=== PATIENT | male | born 1960 | race Caucasian/White ===

== ENCOUNTER 2019-03-05 08:23 | Day surgery (SDC) | payer BC ==
[~2019-03-05] VITALS: Ht 177.8 cm; Wt 110.3 kg
[~2019-03-05 08:23] MED LIST: ASPI81CH PO; CHOL10002 PO; ERGO400 PO; FERROUS SULFATE PO; HYDCHL12.5 PO; HYDR1TAB94 PO; Keflex500 MG PO; LORATADINE-D 11 EACH PO; LORPSEER12 PO; LOSA50 PO; MAGNESIUM250 MG PO; METO25ER PO; NEBI10 PO; OMEP20ER PO; VALA500 PO; ZOLP10 PO
--- NOTE | 2019-03-05 10:40 | NUR ---
03/05/19 1040 Lorrie Cabral SIMETHICONE USED DURING PROCEDURE.
== END 2019-03-05 11:47 | disposition home or self-care (01) ==
LOC: ORSCSDS 08:23
PROVIDERS: Internal Medicine Gastroenterology
PROC: 3E0H8GC Introduction of Other Therapeutic Substance into Lower GI, Via Natural or Artificial Opening Endoscopic (ICD-10-PCS; principal; 2019-03-05 09:45)
PROC: 0DB68ZX Excision of Stomach, Via Natural or Artificial Opening Endoscopic, Diagnostic (ICD-10-PCS; principal; 2019-03-05 09:45)
PROC: 0DBL8ZX Excision of Transverse Colon, Via Natural or Artificial Opening Endoscopic, Diagnostic (ICD-10-PCS; principal; 2019-03-05 09:45)
PROC: 0DB98ZX Excision of Duodenum, Via Natural or Artificial Opening Endoscopic, Diagnostic (ICD-10-PCS; principal; 2019-03-05 09:45)
DX: D50.9 Iron deficiency anemia, unspecified (principal); Z86.010 Personal history of colon polyps; C18.4 Malignant neoplasm of transverse colon; K31.7 Polyp of stomach and duodenum; D12.3 Benign neoplasm of transverse colon; K57.30 Diverticulosis of large intestine without perforation or abscess without bleeding; K64.8 Other hemorrhoids; I10 Essential (primary) hypertension; Z79.899 Other long term (current) drug therapy
CPT/HCPCS: 88305; 88342; J2704; J7120

== ENCOUNTER 2019-03-24 06:01 | Inpatient (IN) | payer BC ==
[~2019-03-24 06:01] MED LIST changes: +IRON PO; +METR500 PO; +NEOM500 PO
--- NOTE | 2019-03-24 06:51 | NUR ---
History, Chart, Medications and Allergies reviewed before start of procedure. Lungs clear T/O to Auscultation.
--- NOTE | 2019-03-24 08:14 | NUR ---
03/24/19 0814 Arlin Rush CATH PLACED BY MCKENNA BOO.
--- NOTE | 2019-03-24 11:04 | NUR ---
ARRIVED FROM OR WAKING UP MOVING LOTS REDIREDTED SEVERAL TIMES TO LIE STILL AND NOT PULL AT THINGS NEEDING SEVERAL REMINDERS TO NOT PULL
--- NOTE | 2019-03-24 11:28 | NUR ---
REPORT GIVEN PATIHOMA TRANSFERRED WITH RN
--- NOTE | 2019-03-24 18:30 | NUR ---
SHIFT SUMMARY PT HAS DONE WELL TODAY SINCE ARRIVING TO UNIT FROM SURGERY. HAS HAD MINIMAL PAIN POST OP. WAS ENCOURAGED TO TAKE TYLENOL AND GABAPENTIN. ABLE TO GET UP TO CHAIR AND AMBULATE IN ROOM EASILY.
--- NOTE | 2019-03-25 04:39 | NUR ---
SHIFT SUMMARY PT IS POD#1 LAP COLECTOMY R/T ADENOCARCINOMA OF THE COLON. SURGICAL SITES ARE WNL, DRESSINGS AND PRAVENA WOUND VAC ARE DRY AND INTACT. PT DENIES PAIN OR NAUSEA THIS SHIFT, VSS WITH O2 SATS >90% ON RA. PT REQUIRES SBA WHEN UP IN ROOM, INDEPENDENT WITH ADLS AT BASELINE. SIMMONS D/C AT 0500 ON 03/25/19 PER PROVIDER ORDER, PT TOLERATED WELL.
[2019-03-25 05:00] LABS: BASOPHILS ABSOLUTE AUTO 0.03 K/mm3 (0.00-0.23); BASOPHILS PERCENT AUTO 0 % (0-2); EOSINOPHILS ABSOLUTE AUTO 0.03 K/mm3 (0.00-0.68); EOSINOPHILS PERCENT AUTO 0 % (0-6); Hemoglobin 10.8 g/dL (13.5-17.5); IMMATURE GRAN ABSOLUTE AUTO 0.02 K/mm3 (0.00-0.10); IMMATURE GRAN PERCENT AUTO 0 % (0-1); LYMPHOCYTES ABSOLUTE AUTO 1.77 K/mm3 (0.84-5.20); LYMPHOCYTES PERCENT AUTO 23 % (21-46); MONOCYTES ABSOLUTE AUTO 0.75 K/mm3 (0.16-1.47); MONOCYTES PERCENT AUTO 10 % (4-13); Mean Corpuscular HGB 25.8 pg (26.0-34.0); Mean Corpuscular HGB Conc 31.8 g/dL (31.5-36.5); Mean Corpuscular Volume 81 fL (80-100); Mean Platelet Volume 9.4 fL (9.1-12.4); NEUTROPHILS ABSOLUTE AUTO 5.16 K/mm3 (1.96-9.15); NEUTROPHILS PERCENT AUTO 66 % (41-73); Platelet Count 206 K/mm3 (150-400); RDW Coefficient Variation 15.5 % (11.7-14.2); RDW Standard Deviation 45.9 fL (35.1-46.3); Red Blood Cell Count 4.18 M/mm3 (4.30-5.90); White Blood Cell Count 7.76 K/mm3 (4.00-11.30)
[2019-03-25 05:27] LABS: Anion Gap 3 mmol/L (6-16); Blood Urea Nitrogen 13 mg/dL (8-24); CO2, Blood 29 mmol/L (21-32); Calcium, Blood 7.7 mg/dL (8.5-10.1); Chloride, Blood 107 mmol/L (98-108); Glomerular Filtration Rate >60 (60-); Glucose, Blood 104 mg/dL (70-99); Potassium, Blood 3.3 mmol/L (3.5-5.5); Sodium, Blood 139 mmol/L (136-145)
--- NOTE | 2019-03-25 19:19 | NUR ---
SHIFT SUMMARY PT HAS DONE VERY WELL. AMBULATING FREQUENTLY, VOIDING, PAIN WELL MANAGED, NOT PASSING GAS YET BUT TOLERATED REG DINNER TRAY, APROX 30%.
--- NOTE | 2019-03-26 06:12 | NUR ---
POD 2 S/P COLECTOMY. PT VSS T/O NIGHT, PAIN MGD W/SCHEDULED TYLENOL W/REP RELIEF. DRESSINGS CDI. PT HAD NO C/O N/V, REP NO FLATUS YET. PT DRINKING PO FLUIDS, IS VOIDING URINE W/O DIFFICULTY. PT AMB INDEP, JERRY WELL, IS USING CALL LIGHT FOR ASSISTANCE, WILL CONT TO MONITOR UNTIL REP GIVEN TO ONCOMING RN.
--- NOTE | 2019-03-26 13:42 | NUR ---
PT REPORTS PASSING FLATUS AND SMALL BM
[2019-03-26] MEDS ORDERED: Norco 5-325 Ta1 EACH PO (16:26)
[2019-03-26] MEDS ORDERED: ACET325 PO (16:33)
--- NOTE | 2019-03-26 17:22 | NUR ---
DISCHARGE PT DISCHARGED HOME FROM UNIT AT APROX 1715. PT GIVEN WRITTEN AND VERBAL DISCHARGE INSTRUCTIONS AND VERBALIZED UNDERSTANDING OF THESE INSTRUCTIONS. IV REMOVED. PT DECLINED WHEELCHAIR OR ASSISTANCE TO VEHICLE.
== END 2019-03-26 17:15 | disposition home or self-care (01) | DRG 331 ==
LOC: SURS 06:01 → PRE IP 07:30 → SURS 11:32
PROVIDERS: ADMIT Surgery
PROC: 0DTF4ZZ Resection of Right Large Intestine, Percutaneous Endoscopic Approach (ICD-10-PCS; principal; 2019-03-24 07:30)
DX: C18.3 Malignant neoplasm of hepatic flexure (principal); I10 Essential (primary) hypertension; Z88.5 Allergy status to narcotic agent
CPT/HCPCS: 36415; 80048; 85025; 86850; 86900; 86901; 88309; A9270; J0690; J1100; J1650; J1885; J2250; J2370; J2405; J2704; J2710; J3010; J7030; J7120

== ENCOUNTER → 2019-04-09 | Outpatient (CLI) | payer BC ==
[~2019-04-09] MED LIST changes: +ACET325 PO; +Norco 5-325 Ta1 EACH PO
[2019-04-09 15:21] LABS: Performing Lab SYMBIODX; Test Name TISSUE BLOCK
== END | disposition home or self-care (01) ==
LOC: LAB 15:14 → LAB SHORT 15:14
PROVIDERS: Internal Medicine Hematology & Oncology
DX: C18.3 Malignant neoplasm of hepatic flexure (principal)
CPT/HCPCS: 88341; 88342

== ENCOUNTER 2019-09-15 06:44 | Day surgery (SDC) | payer BC ==
[~2019-09-15] VITALS: Ht 180.3 cm; Wt 113.7 kg
[2019-09-15] MEDS ORDERED: KAPSPARGO SPRIN50 MG (07:15)
--- NOTE | 2019-09-15 09:11 | NUR ---
09/15/19910 Kelsey Turner PT. WAS ASKED IF HE WANTED ANYTHING TO DRINK. PT. STATED "I'M FINE." PT. DIDN'T WANT ANYTHING TO DRINK.
== END 2019-09-15 08:53 | disposition home or self-care (01) ==
LOC: ORSCSDS 06:44
PROVIDERS: Internal Medicine Gastroenterology
PROC: 0DBN8ZX Excision of Sigmoid Colon, Via Natural or Artificial Opening Endoscopic, Diagnostic (ICD-10-PCS; principal; 2019-09-15 08:00)
PROC: 0DBM8ZX Excision of Descending Colon, Via Natural or Artificial Opening Endoscopic, Diagnostic (ICD-10-PCS; principal; 2019-09-15 08:00)
DX: Z85.038 Personal history of other malignant neoplasm of large intestine (principal); Z86.010 Personal history of colon polyps; D12.4 Benign neoplasm of descending colon; K63.5 Polyp of colon; K57.30 Diverticulosis of large intestine without perforation or abscess without bleeding; K64.8 Other hemorrhoids; I10 Essential (primary) hypertension; K21.9 Gastro-esophageal reflux disease without esophagitis; E78.5 Hyperlipidemia, unspecified; Z79.899 Other long term (current) drug therapy
CPT/HCPCS: 88305; J2405; J2704; J7120

== ENCOUNTER 2020-08-25 22:59 | Emergency (ER) | payer BC ==
[~2020-08-25] VITALS: Ht 165.1 cm; Wt 79.4 kg
[~2020-08-25 22:59] MED LIST changes: +KAPSPARGO SPRIN50 MG
[2020-08-26 00:44] LABS: BASOPHILS ABSOLUTE AUTO 0.06 K/mm3 (0.00-0.23); BASOPHILS PERCENT AUTO 1 % (0-2); EOSINOPHILS ABSOLUTE AUTO 0.32 K/mm3 (0.00-0.68); EOSINOPHILS PERCENT AUTO 4 % (0-6); Hemoglobin 14.8 g/dL (13.5-17.5); IMMATURE GRAN ABSOLUTE AUTO 0.02 K/mm3 (0.00-0.10); IMMATURE GRAN PERCENT AUTO 0 % (0-1); LYMPHOCYTES ABSOLUTE AUTO 2.83 K/mm3 (0.84-5.20); LYMPHOCYTES PERCENT AUTO 39 % (21-46); MONOCYTES ABSOLUTE AUTO 0.78 K/mm3 (0.16-1.47); MONOCYTES PERCENT AUTO 11 % (4-13); Mean Corpuscular HGB 29.7 pg (26.0-34.0); Mean Corpuscular HGB Conc 33.6 g/dL (31.5-36.5); Mean Corpuscular Volume 88 fL (80-100); Mean Platelet Volume 9.6 fL (9.1-12.4); NEUTROPHILS ABSOLUTE AUTO 3.25 K/mm3 (1.96-9.15); NEUTROPHILS PERCENT AUTO 45 % (41-73); Platelet Count 189 K/mm3 (150-400); RDW Coefficient Variation 12.7 % (11.7-14.2); RDW Standard Deviation 40.8 fL (35.1-46.3); Red Blood Cell Count 4.98 M/mm3 (4.30-5.90); White Blood Cell Count 7.26 K/mm3 (4.00-11.30)
[2020-08-26 01:04] LABS: Alanine Aminotransfer (ALT/SGP 52 U/L (12-78); Albumin, Blood 3.7 g/dL (3.4-5.0); Albumin/Globulin Ratio 1.2 (0.8-1.8); Alk Phos 88 U/L (50-136); Anion Gap 5 mmol/L (6-16); Aspartate Aminotrans (AST/SGOT 25 U/L (12-37); Bilirubin, Total 0.5 mg/dL (0.1-1.0); Blood Urea Nitrogen 14 mg/dL (8-24); CO2, Blood 28 mmol/L (21-32); Calcium, Blood 8.8 mg/dL (8.5-10.1); Chloride, Blood 110 mmol/L (98-108); Creatinine, Blood 0.93 mg/dL (0.60-1.20); Globulin, Blood 3.2 g/dL (2.2-4.0); Glomerular Filtration Rate >60 (60-); Glucose, Blood 115 mg/dL (70-99); Potassium, Blood 3.7 mmol/L (3.5-5.5); Sodium, Blood 143 mmol/L (136-145); Total Protein, Blood 6.9 g/dL (6.4-8.2); Troponin I <0.015 ng/mL (0.000-0.040)
== END 2020-08-26 02:30 | disposition home or self-care (01) ==
LOC: ER 22:59
PROVIDERS: Physician Assistant
DX: I10 Essential (primary) hypertension (principal); K21.9 Gastro-esophageal reflux disease without esophagitis; Z88.5 Allergy status to narcotic agent; Z88.8 Allergy status to other drugs, medicaments and biological substances; Z79.899 Other long term (current) drug therapy
CPT/HCPCS: 36415; 80053; 84484; 85025; 93005; 93010; 99283-25

== ENCOUNTER 2021-08-24 06:38 | Day surgery (SDC) | payer BC ==
[~2021-08-24] VITALS: Ht 180.3 cm; Wt 114.6 kg
[2021-08-24] MEDS ORDERED: Aspir 8181 MG (06:55)
== END 2021-08-24 08:45 | disposition home or self-care (01) ==
LOC: ORSCSDS 06:38
PROVIDERS: Internal Medicine Gastroenterology
PROC: 0DBM8ZX Excision of Descending Colon, Via Natural or Artificial Opening Endoscopic, Diagnostic (ICD-10-PCS; principal; 2021-08-24 08:00)
DX: Z12.11 Encounter for screening for malignant neoplasm of colon (principal); Z86.010 Personal history of colon polyps; K63.5 Polyp of colon; K64.8 Other hemorrhoids; K57.30 Diverticulosis of large intestine without perforation or abscess without bleeding; Z79.82 Long term (current) use of aspirin; Z79.899 Other long term (current) drug therapy
CPT/HCPCS: 82947; 88305; J2405; J2704; J7120

== ENCOUNTER → 2021-12-28 | Outpatient (CLI) | payer BC ==
[~2021-12-28] MED LIST changes: +Aspir 8181 MG
== END ==
LOC: LAB SHORT 15:10
DX: L82.1 Other seborrheic keratosis (principal)
CPT/HCPCS: 88305

== ENCOUNTER 2024-09-23 09:56 | Day surgery (SDC) | payer MEDICARE ==
[~2024-09-23] VITALS: Ht 180.3 cm; Wt 109.2 kg
[~2024-09-23 09:56] MED LIST changes: +Lactated Ringer's 1,000 ML IV ONE; +propofoL 50 ML IV ONE
[2024-09-23] MEDS ORDERED: ATOR20 (10:23)
[2024-09-23] MEDS ORDERED: FELODIPINE ER10 M1 (10:23)
[2024-09-23] MEDS ORDERED: UBID10 (10:24)
[2024-09-23] MEDS ORDERED: VITAMIN D31000 UNI1 (10:24)
[2024-09-23] MEDS ORDERED: CENTRUM SILVER1 EAC2 (10:24)
[2024-09-23] MEDS ORDERED: Lactated Ringer's 1,000 ML IV ONE (10:59)
[2024-09-23 12:26] VITALS: BP 115/82
== END 2024-09-23 12:20 | disposition home or self-care (01) ==
LOC: ORSCSDS 09:56
PROVIDERS: Internal Medicine Gastroenterology
PROC: 0DBN8ZX Excision of Sigmoid Colon, Via Natural or Artificial Opening Endoscopic, Diagnostic (ICD-10-PCS; principal; 2024-09-23 11:00)
DX: Z12.11 Encounter for screening for malignant neoplasm of colon (principal); Z85.038 Personal history of other malignant neoplasm of large intestine; Z86.0100 Personal history of colon polyps, unspecified; K63.5 Polyp of colon; K57.30 Diverticulosis of large intestine without perforation or abscess without bleeding; K64.8 Other hemorrhoids; E11.9 Type 2 diabetes mellitus without complications; K21.9 Gastro-esophageal reflux disease without esophagitis; Z79.899 Other long term (current) drug therapy
CPT/HCPCS: 82947; 88305; J2704; J7120